=== PATIENT | male | born 1970 | race Two or more races ===

== ENCOUNTER 2022-02-14 15:39 | Emergency (ER) | payer OTHER ==
[2022-02-14 15:50] VITALS: BP 128/81; PULSE 81; RESP 18; TEMP 97.9; BMI 23.7
[2022-02-14] MEDS ORDERED: RABIES VACCINE (PCEC)/PF 2.5 UNIT/VIAL IM ONE ×2 (16:47→17:10)
[2022-02-14] MEDS ORDERED: RABIES IMMUNE GLOBULIN 300 UNITS/1 ML VIAL IM ONE (17:24)
[2022-02-14] MEDS ORDERED: RABIES IMMUNE GLOBULIN 300 UNITS/1 ML VIAL ONE (17:39)
== END 2022-02-14 18:04 | disposition home or self-care (01) ==
LOC: JERFT 15:39
PROC: 3E0234Z Introduction of Serum, Toxoid and Vaccine into Muscle, Percutaneous Approach (ICD-10-PCS; principal; 2022-02-14)
DX: S71.132A Puncture wound without foreign body, left thigh, initial encounter (principal); W54.0XXA Bitten by dog, initial encounter
CPT/HCPCS: 90375; 90675; 99284-25

== ENCOUNTER 2022-02-18 16:46 | Emergency (ER) | payer OTHER ==
[2022-02-18 17:02] VITALS: BP 115/73; PULSE 71; RESP 18; TEMP 98.1; BMI 23.7
[2022-02-18] MEDS ORDERED: RABIES VACCINE (PCEC)/PF 2.5 UNIT/VIAL IM ONE ×2 (17:20→18:02)
== END 2022-02-18 18:19 | disposition home or self-care (01) ==
LOC: JER 16:46
PROC: 3E0234Z Introduction of Serum, Toxoid and Vaccine into Muscle, Percutaneous Approach (ICD-10-PCS; principal; 2022-02-18)
DX: Z29.14 Encounter for prophylactic rabies immune globulin (principal)
CPT/HCPCS: 90675; 99284-25

== ENCOUNTER 2022-02-25 19:44 | Emergency (ER) | payer OTHER ==
[2022-02-25 19:51] VITALS: BP 132/88; PULSE 85; RESP 18; TEMP 98; BMI 23.7
[2022-02-25] MEDS ORDERED: RABIES VACCINE (PCEC)/PF 2.5 UNIT/VIAL IM ONE ×2 (20:24→20:26)
== END 2022-02-25 20:39 | disposition home or self-care (01) ==
LOC: JERFT 19:44
PROC: 3E0234Z Introduction of Serum, Toxoid and Vaccine into Muscle, Percutaneous Approach (ICD-10-PCS; principal; 2022-02-25)
DX: R09.81 Nasal congestion (principal); Z29.14 Encounter for prophylactic rabies immune globulin
CPT/HCPCS: 90675; 99284-25

== ENCOUNTER 2022-08-06 11:10 | Emergency (ER) | payer OTHER ==
[2022-08-06 11:24] VITALS: BP 128/87; PULSE 74; RESP 18; TEMP 98.1; BMI 26.6
[2022-08-06] MEDS ORDERED: IBUPROFEN 600 MG TABLET (FP) PO ONE ×3 (14:01→14:12)
== END 2022-08-06 13:00 | disposition home or self-care (01) ==
LOC: JERFT 11:10
DX: R51.9 Headache, unspecified (principal)
CPT/HCPCS: 99282-25

== ENCOUNTER 2024-01-13 07:44 | Emergency (ER) | payer OTHER ==
[2024-01-13 07:50] VITALS: BMI 24.4
[2024-01-13] MEDS ORDERED: ACETAMINOPHEN 325 MG TABLET (FP) ONE (08:17)
[2024-01-13] MEDS: ACETAMINOPHEN 500 MG TABLET (FP) PO ONE (08:20)
[2024-01-13] MEDS ORDERED: METOCLOPRAMIDE HCL INJECTION 10 MG/2 ML VIAL ONE (09:19)
[2024-01-13 09:25] LABS: POTASSIUM 4.4 mmol/L (3.5-5.1)
[2024-01-13 09:27] LABS: ALBUMIN 3.8 g/dl (3.4-5.0); BLOOD UREA NITROGEN 16.2 mg/dL (7-18); CALCIUM 9.5 mg/dL (8.5-10.1)
[2024-01-13 09:28] LABS: BASO % 0.8 % (0-2.0); EOS % 4.2 % (0-4.5); HEMOGLOBIN 13.8 GM/dL (11.7-16.9); LYMPH % 28.7 % (8-40); MCH 30.6 pg (25.7-33.7); MCHC 33.7 g/dl (32.0-35.9); MEAN CELL VOLUME 90.6 fl (80-96); MEAN PLT VOLUME 7.7 fl (7.5-11.1); MONO % 8.4 % (3.8-10.2); NEUT % 57.9 % (42.8-82.8); PLATELET COUNT 233 10^3/uL (134-434); RBC 4.52 M/mm3 (4.00-5.60); RDW 12.1 % (11.9-15.9); WHITE BLOOD COUNT 6.1 K/mm3 (4.0-10.0)
[2024-01-13] MEDS: METOCLOPRAMIDE HCL INJECTION 10 MG/2 ML VIAL IVPB ONE (09:28)
[2024-01-13 09:30] LABS: CREATININE 0.9 mg/dL (0.55-1.3)
[2024-01-13] MEDS: LACTATED RINGERS SOLUTION 1000 ML INFUS.BAG IV ONE (09:30)
[2024-01-13 09:32] LABS: BILIRUBIN,TOTAL 0.7 mg/dL (0.2-1); TOT PROT 6.8 g/dl (6.4-8.2)
[2024-01-13 12:53] LABS: HIV INTERPRETATION NEGATIVE (NEGATIVE)
[2024-01-13 13:15] VITALS: BP 127/79; PULSE 73; RESP 16; TEMP 98.2
== END 2024-01-13 11:19 | disposition home or self-care (01) ==
LOC: JER 07:44
PROC: 3E033GC Introduction of Other Therapeutic Substance into Peripheral Vein, Percutaneous Approach (ICD-10-PCS; principal; 2024-01-13)
DX: R51.9 Headache, unspecified (principal); R42 Dizziness and giddiness; I10 Essential (primary) hypertension
CPT/HCPCS: 36415; 70450-TC; 80053; 82962; 84484; 85025; 86803; 87389; 93005; 93010; 99285-25